=== PATIENT | female | born 1940 | race Caucasian/White ===

== ENCOUNTER → 2022-06-21 | Outpatient (CLI) | payer MEDICARE ==
--- NOTE | 2022-06-21 13:16 | CT ---
EXAMINATION TYPE: CT chest w con DATE OF EXAM: 06/21/2022 COMPARISON: Chest x-ray 1022 HISTORY: SAVAGE for [address] DLP: 279 mGycm Automated exposure control for dose reduction was used. TECHNIQUE: CT scan of the chest is performed with IV Contrast, patient injected with 70 mL of Isovue 300. MIP I mages are created on CT scanner and reviewed. 3D reconstructed images are created on an independent w orkstation and reviewed. FINDINGS: Exam limited by respiratory motion artifact LUNGS: Subpleural 6 mm nodule superior segment right lower lobe image 25 small characterize.. There is no pleural effusion or pneumothorax seen. The tracheobronchial tree is patent. Groundglass subse gmental consolidation without air bronchograms seen in the anterior segment right upper lobe axial im ages 22 through 24. Additional 5 mm subpleural nodule right upper lobe axial image 26 MEDIASTINUM: There are no greater than 1 cm hilar or mediastinal lymph nodes. Trace of pericardial ef fusion is seen. Aorta normal caliber with atherosclerotic changes. OTHER: Large hiatal hernia. Hypertrophic degenerative changes spine. IMPRESSION: 1. Within the anterior segment right upper lobe localized area of groundglass changes. Differential d iagnosis includes a mild pneumonitis. 2. There are subpleural 6 mm left right-sided pulmonary nodule too small to characterize. Recommend s ix-month follow-up to confirm stability. 3. Large hiatal hernia.
== END | disposition home or self-care (01) ==
LOC: RADCTMAIN 11:09
PROVIDERS: ATTEND Internal Medicine
DX: K44.9 Diaphragmatic hernia without obstruction or gangrene (principal); R91.1 Solitary pulmonary nodule
CPT/HCPCS: 82565; 84520; 71260; 36415; Q9967

== ENCOUNTER 2022-07-26 13:06 | Day surgery (SDC) | payer MEDICARE ==
[~2022-07-26 13:06] MED LIST: LACTATED RINGERS 1,000 ML IV SCH; LIDOCAINE 1% (10MG/ML) FOR IV START INTRADERMA PRN
[2022-07-26 13:42] VITALS: TEMP 97.3
[2022-07-26 13:50] LABS: Glucose,Whole Blood 94 mg/dL (70-110)
[2022-07-26] MEDS ORDERED: PROPOFOL 10 MG/ML 20 ML VIAL IV ONE (14:17)
--- NOTE | 2022-07-26 14:24 | P.GSHP ---
History of Present Illness H&P Date: 07/26/22 Chief Complaint: GERD This is a 7-year-old female with a known history of a large hiatal hernia. Patient presents today for EGD. Past Medical History Past Medical History: Diabetes Mellitus, GERD/Reflux, Hyperlipidemia, Hypertension, Osteoarthritis (OA), Sleep Apnea/CPAP/BIPAP Additional Past Medical History / Comment(s): hiatal hernia, "can't breathe"- told breathing issue is due to hiatal hernia, has had testing & everything else ruled out, recent EKG @[place], dysphagia, uses CPAP History of Any Multi-Drug Resistant Organisms: None Reported Past Surgical History: Adenoidectomy, Orthopedic Surgery, Tonsillectomy Additional Past Surgical History / Comment(s): BILAT CATARACTS REMOVED. D & C. BILAT BONE SPURS REMOVED FROM FEET. COLONOSCOPY. EGD Past Anesthesia/Blood Transfusion Reactions: No Reported Reaction Smoking Status: Never smoker - Past Family History Mother Family Medical History: Diabetes Mellitus, Deep Vein Thrombosis (DVT) Father Family Medical History: Congestive Heart Failure (CHF) Brother(s) Family Medical History: Cancer, Coronary Artery Disease (CAD) Son(s) Family Medical History: No Reported History Daughter(s) Family Medical History: No Reported History Medications and Allergies Home Medications Medication Instructions Recorded Confirmed Type Aspirin 81 mg PO DAILY 03/06/15 07/23/22 History Ca/D3/Mag/Zinc/Stephane/Reg/Mgbor 1 tab PO DAILY 03/06/15 07/23/22 History [Caltrate 600+D3+Min Chew Tab] Losartan Potassium [Cozaar] 25 mg PO DAILY 03/06/15 07/26/22 History Multivitamins, Thera [Theragran] 1 tab PO DAILY 03/06/15 07/23/22 History Psyllium Husk (with Sugar) 822 gm PO DAILY 03/06/15 07/26/22 History [Metamucil Powder] Simvastatin [Zocor] 20 mg PO HS 03/06/15 07/23/22 History metFORMIN HCL [Glucophage] 250 mg PO BID 03/06/15 07/23/22 History Albuterol Inhaler [Ventolin Hfa 1 - 2 puff INHALATION Q6H PRN 07/23/22 07/23/22 History Inhaler] Lansoprazole [Prevacid] 30 mg PO DAILY 07/23/22 07/23/22 History Telmisartan [Micardis] 80 mg PO DAILY 07/23/22 07/26/22 History Ubidecarenone [Co Q-10] 100 mg PO DAILY 07/23/22 07/23/22 History Allergies Allergy/AdvReac Type Severity Reaction Status Date / Time lisinopril AdvReac Cough Verified 07/26/22 13:21 Penicillins AdvReac NOT Verified 07/26/22 13:21 EFFECTIVE Surgical - Exam Vital Signs Temp Pulse Resp BP Pulse Ox 97.3 F L 85 16 168/71 97 07/26/22 13:28 07/26/22 13:28 07/26/22 13:28 07/26/22 13:28 07/26/22 13:28 - General well developed, well nourished, no distress - Eyes PERRL - ENT normal pinna - Neck no masses - Respiratory normal expansion - Cardiovascular Rhythm: regular - Abdomen Abdomen: soft, non tender Assessment and Plan Assessment: GERD. We'll perform EGD.
--- NOTE | 2022-07-26 14:31 | P.OP ---
Date of Procedure: 07/26/22 Preoperative Diagnosis: GERD Postoperative Diagnosis: Large hiatal hernia Procedure(s) Performed: EGD Anesthesia: MAC Surgeon: Marco Vickers Pathology: none sent Condition: stable Description of Procedure: The patient's placed on the endoscopy table in the lateral position. She received IV sedation. The gastroscope placed oropharynx passed in the esophagus into the stomach. Scope was then placed through the pylorus. The first and second portion duodenum appeared normal. Scope was then brought back. The patient had a large hiatal hernia. Approximately two thirds the stomach appeared to be within the hiatal hernia. The antrum was biopsied. Scope was then brought back. In the GE junction was at 37 cm. The distal esophagus appeared normal. The proximal esophagus appeared normal. Scope withdrawn for patient.
[2022-07-26 14:41] VITALS: RESP 18
[2022-07-26 15:10] VITALS: BP 149/74; PULSE 72
== END 2022-07-26 15:28 | disposition home or self-care (01) ==
LOC: ORWHC2ENDO 13:06
PROVIDERS: ATTEND Surgery
DX: K29.50 Unspecified chronic gastritis without bleeding (principal); K44.9 Diaphragmatic hernia without obstruction or gangrene; K21.9 Gastro-esophageal reflux disease without esophagitis; E11.9 Type 2 diabetes mellitus without complications; E78.5 Hyperlipidemia, unspecified; I10 Essential (primary) hypertension; M19.90 Unspecified osteoarthritis, unspecified site; G47.33 Obstructive sleep apnea (adult) (pediatric); Z98.890 Other specified postprocedural states; Z90.89 Acquired absence of other organs; Z98.41 Cataract extraction status, right eye; Z98.42 Cataract extraction status, left eye; Z82.49 Family history of ischemic heart disease and other diseases of the circulatory system; Z83.3 Family history of diabetes mellitus; Z80.9 Family history of malignant neoplasm, unspecified; Z83.2 Family history of diseases of the blood and blood-forming organs and certain disorders involving the immune mechanism; Z79.82 Long term (current) use of aspirin; Z79.84 Long term (current) use of oral hypoglycemic drugs; Z79.899 Other long term (current) drug therapy; Z99.89 Dependence on other enabling machines and devices; Z88.8 Allergy status to other drugs, medicaments and biological substances; Z88.0 Allergy status to penicillin
CPT/HCPCS: 43239; 88305; J2704

== ENCOUNTER → 2022-07-29 | Outpatient (CLI) | payer MEDICARE ==
[2022-07-29 17:58] LABS: Basophils # (A) 0.05 X 10*3/uL (0.00-0.10); Basophils % (A) 0.6 %; Eosinophils # (A) 0.28 X 10*3/uL (0.04-0.35); Eosinophils % (A) 3.4 %; HCT 38.1 % (37.2-46.3); HGB 12.2 g/dL (12.0-15.0); Immature Grans, Automated 0.2 %; Lymphocytes # (A) 1.95 X 10*3/uL (0.90-5.00); Lymphocytes % (A) 23.6 %; MCH 30.9 pg (27.0-32.0); MCV 96.5 fL (80.0-97.0); Mean Platelet Volume 11.3 fL (9.5-12.2); Monocytes # (A) 0.77 X 10*3/uL (0.20-1.00); Monocytes % (A) 9.3 %; NRBC Per 100 WBC 0 /100 WBCS (0.0-0.0); Neutrophils # (A) 5.18 X 10*3/uL (1.80-7.70); Neutrophils % (A) 62.9 %; Platelet Count 266 X 10*3/uL (140-440); RBC 3.95 X 10*6/uL (4.10-5.20); RDW 14.1 % (11.5-14.5); WBC 8.25 X 10*3/uL (4.50-10.00)
== END | disposition home or self-care (01) ==
LOC: LABPAT 14:06
PROVIDERS: ATTEND Surgery
DX: Z01.812 Encounter for preprocedural laboratory examination (principal); K44.9 Diaphragmatic hernia without obstruction or gangrene
CPT/HCPCS: 36415; 85025

== ENCOUNTER 2022-07-30 06:33 | Day surgery (SDC) | payer MEDICARE ==
[2022-07-29 13:10] VITALS: BMI 28.9
[~2022-07-30 06:33] MED LIST changes: +ACETAMINOPHEN TAB 500 MG TAB PO PRN; +DEXAMETHASONE SOD PHOSPHATE 4 MG/ML 1 ML VIAL IV ONE; +HEPARIN SODIUM,PORCINE/PF 5,000 UNIT/0.5 ML SYRINGE SQ PRN; -LACTATED RINGERS 1,000 ML IV SCH; +ONDANSETRON 4 MG/2 ML VIAL IVP ONE
[2022-07-30] MEDS: LACTATED RINGERS 1,000 ML IV SCH (07:10)
[2022-07-30 07:33] LABS: Glucose,Whole Blood 102 mg/dL (70-110)
[2022-07-30] MEDS ORDERED: PHENYLEPHRINE-0.9% NACL SYG 1,000 MCG/10 ML SYRINGE ONE (07:33)
[2022-07-30] MEDS ORDERED: PROPOFOL 10 MG/ML 20 ML VIAL IV ONE (07:33)
[2022-07-30] MEDS ORDERED: HYDROmorphone (PF) 1 MG/ML ONE (07:33)
[2022-07-30] MEDS ORDERED: fentaNYL (PF) 50 MCG/ML 2 ML AMP ONE (07:33)
[2022-07-30] MEDS ORDERED: SUCCINYLCHOLINE CHLORIDE 200 MG/10 ML VIAL IV ONE (07:33)
[2022-07-30] MEDS ORDERED: LIDOCAINE 2% INJ 20 MG/ML (2 ML VIAL) ONE (07:33)
[2022-07-30] MEDS ORDERED: SUGAMMADEX SODIUM 200 MG/2 ML SDV IV ONE (07:33)
[2022-07-30] MEDS ORDERED: ROCURONIUM 10 MG/ML (5 ML VIAL) IV ONE (07:33)
[2022-07-30] MEDS ORDERED: NEOSTIGMINE 1 MG/ML 10 ML VIAL ONE (07:33)
[2022-07-30] MEDS ORDERED: GLYCOPYRROLATE 0.2 MG/ML 2 ML VIAL ONE (07:33)
[2022-07-30] MEDS ORDERED: MIDAZOLAM 2 MG/2 ML VIAL ONE (07:33)
[2022-07-30] MEDS ORDERED: BUPIVACAIN-EPI 0.25%-1:200,000 30 ML VIAL SQ ONE (08:10)
[2022-07-30] MEDS ORDERED: LACTATED RINGERS 1,000 ML IV ONE (08:34)
[2022-07-30 08:41] LABS: Potassium 4.2 mmol/L (3.5-5.1)
[2022-07-30] MEDS ORDERED: HYDROmorphone 1 MG/ML 1 ML SYRINGE IVP PRN (09:02)
[2022-07-30] MEDS ORDERED: ONDANSETRON 4 MG/2 ML VIAL IVP PRN (09:02)
[2022-07-30] MEDS: HYDROmorphone 0.5 MG/0.5 ML SYRINGE IVP PRN ×3 (09:02→09:26)
--- NOTE | 2022-07-30 09:02 | P.OP ---
Date of Procedure: 07/30/22 Preoperative Diagnosis: Paraesophageal hernia Postoperative Diagnosis: Paraesophageal hernia with approximately one half stomach and chest Procedure(s) Performed: Laparoscopic repair of paraesophageal hernia with mesh Anesthesia: GAVINO Surgeon: Marco Vickers Estimated Blood Loss (ml): 5 Pathology: none sent Condition: stable Disposition: PACU Operative Findings: Large paraesophageal hernia Description of Procedure: The patient was placed on the operating table in the supine position. She received general anesthesia. She was then placed in dorsal lithotomy position. Her abdomen was prepped and draped in the usual sterile fashion. The skin incision sites were anesthetized with 1% local Xylocaine. The skin was incised in the left periumbilical area with an 11 scalpel. Using a 5 mm blade was trocar under direct visitation the peritoneal cavity was entered. And then insufflated. After adequate insufflation the laparoscope was placed back into the peritoneal cavity. Next a 5 mm trocar was placed in the right epigastric and then the right lateral position. Another 5 mm trochars placed in the left lateral position. Another 5 mm trocar placed in the left epigastric position. And the original left periumbilical trocar was exchanged for a 10 mm trocar. The left lateral lobe liver was retracted. The patient had a large hiatal hernia. Using the Harmonic scissors the crural defect was dissected in the Harmonic scissors were used to dissect the hiatal hernia sac. The fundus of the stomach was completely mobilized by using the Harmonic scissors to divide short gastric vessels. The stomach was reduced into the peritoneal cavity. The crura was dissected with the Harmonic scissors. And then the crural repair was performed using 2-0 Ethibond suture. The Roggen bio A mesh was then placed over top of the repair and secured with 2-0 Ethibond suture. Next. The stomach and esophagus were inspected there is known to any injury to the stomach or esophagus. The abdomen was irrigated there is no bleeding seen. The trochars are withdrawn. Skin was closed interrupted 3-0 Monocryl suture. Dermabond was applied. Patient tolerated procedure well and was sent to recovery in stable condition.
[2022-07-30] MEDS ORDERED: KETOROLAC 15 MG/ML 1 ML VIAL IVP ONE (09:35)
[2022-07-30] MEDS ORDERED: hydrALAZINE HCL 20 MG/ML 1 ML VIAL IVP ONE (10:04)
[2022-07-30 13:37] LABS: Glucose,Whole Blood 158 mg/dL (70-110)
[2022-07-30] MEDS: D5-0.45% NACL WITH KCL 20MEQ/L 1,000 ML IV SCH ×2 (13:45→17:31)
[2022-07-30] MEDS: LOSARTAN 25 MG TAB PO SCH (15:20)
[2022-07-30 17:06] LABS: Glucose,Whole Blood 206 mg/dL (70-110)
[2022-07-30] MEDS: INSULIN ASPART (NovoLOG) 100 UNIT/ML VIAL SQ SCH ×2 (17:46→21:46)
[2022-07-30 19:05] LABS: Glucose,Whole Blood 182 mg/dL (70-110)
[2022-07-30] MEDS ORDERED: ATORVASTATIN 10 MG TAB PO SCH (21:00)
--- NOTE | 2022-07-30 23:43 | P.CONS ---
History of Present Illness - Reason for Consult Consult date: 07/30/22 Medical management - Chief Complaint Repair of paraesophageal hernia. - History of Present Illness Patient is a 82-year-old female with a known history of hypertension, hyperlipidemia, GERD, diabetes type 2 [id number] presented to the hospital for elective repair of paraesophageal hernia. Patient is status post laparoscopic repair of paraesophageal hernia with mesh. Currently patient is sitting in the bed. Awake alert and oriented x3. Pain is controlled. No nausea or vomiting. No cough or production. No chest pain or shortness of breath. No headache or dizziness or lightheadedness. Laboratory showed sodium 152 potassium 4.2 chloride 107 bicarb is 29 anion gap 6 and blood sugar is 158 Patient's blood pressure uncontrolled and increasing to 192/83 mmHg. Review of Systems Constitutional: Patient denies any fever or chills . no Generalized weakness. Abdomen: Patient denied any nausea or vomiting or abd. pain Cardiovascular: Patient denies any chest pain or short of breath no palpitations. Respiratory: patient denied any cough . no sputum production. No shortness of breath Neurologic: Patient denied any numbness or tingling headache. Musculoskeletal: Patient denies any complaints of joint swelling or deformity. Skin: Negative Psychiatric: Negative Endocrine: No heat or cold intolerance. No recent weight gain. Genitourinary: No dysuria or hematuria. All other 14 point ROS negative except the above Past Medical History Past Medical History: Diabetes Mellitus, GERD/Reflux, Hyperlipidemia, Hypertension, Osteoarthritis (OA), Sleep Apnea/CPAP/BIPAP Additional Past Medical History / Comment(s): hiatal hernia, "can't breathe"- told breathing issue is due to hiatal hernia, has had testing & everything else ruled out, recent EKG @[place], dysphagia, uses CPAP History of Any Multi-Drug Resistant Organisms: None Reported Past Surgical History: Adenoidectomy, Orthopedic Surgery, Tonsillectomy Additional Past Surgical History / Comment(s): BILAT CATARACTS REMOVED. D & C. BILAT BONE SPURS REMOVED FROM FEET. COLONOSCOPY. EGD Past Anesthesia/Blood Transfusion Reactions: No Reported Reaction Past Psychological History: No Psychological Hx Reported Smoking Status: Never smoker Past Alcohol Use History: Rare Past Drug Use History: None Reported - Past Family History Mother Family Medical History: Diabetes Mellitus, Deep Vein Thrombosis (DVT) Father Family Medical History: Congestive Heart Failure (CHF) Brother(s) Family Medical History: Cancer, Coronary Artery Disease (CAD) Son(s) Family Medical History: No Reported History Daughter(s) Family Medical History: No Reported History Medications and Allergies Home Medications Medication Instructions Recorded Confirmed Type Aspirin 81 mg PO DAILY 03/06/15 07/30/22 History Ca/D3/Mag/Zinc/Stephane/Reg/Mgbor 1 tab PO DAILY 03/06/15 07/30/22 History [Caltrate 600+D3+Min Chew Tab] Losartan Potassium [Cozaar] 25 mg PO QAM 03/06/15 07/30/22 History Multivitamins, Thera [Theragran] 1 tab PO DAILY 03/06/15 07/30/22 History Psyllium Husk (with Sugar) 822 gm PO DAILY 03/06/15 07/30/22 History [Metamucil Powder] Simvastatin [Zocor] 20 mg PO HS 03/06/15 07/30/22 History metFORMIN HCL [Glucophage] 250 mg PO BID 03/06/15 07/30/22 History Albuterol Inhaler [Ventolin Hfa 1 - 2 puff INHALATION Q6H PRN 07/23/22 07/30/22 History Inhaler] Lansoprazole [Prevacid] 30 mg PO QAM 07/23/22 07/30/22 History Telmisartan [Micardis] 80 mg PO QAM 07/23/22 07/30/22 History Ubidecarenone [Co Q-10] 100 mg PO DAILY 07/23/22 07/30/22 History Allergies Allergy/AdvReac Type Severity Reaction Status Date / Time lisinopril AdvReac Cough Verified 07/30/22 06:54 Penicillins AdvReac NOT Verified 07/30/22 06:54 EFFECTIVE Physical Exam Vitals: Vital Signs Temp Pulse Resp BP Pulse Ox 07/30/22 12:35 92 148/75 98 07/30/22 12:05 93 144/76 95 07/30/22 11:50 95 163/76 97 07/30/22 11:35 96 153/77 96 07/30/22 11:20 86 169/79 96 07/30/22 11:05 97.6 F 87 16 157/80 96 07/30/22 10:31 170/79 07/30/22 10:30 88 16 169/70 100 07/30/22 10:15 83 16 169/70 99 07/30/22 09:55 96 16 183/72 99 07/30/22 09:40 99 16 192/83 99 07/30/22 09:25 80 16 184/81 100 07/30/22 09:10 79 16 184/81 97 07/30/22 08:55 106 H 16 154/72 94 L 07/30/22 06:52 97.2 F L 81 16 192/81 97 Intake and Output 07/30/22 07/30/22 07/30/22 06:59 14:59 22:59 Intake Total 2125 Output Total 5 Balance 2120 Intake: IV 1450 Intake, IV Titration 675 Amount D5-0.45% NaCl with KCl 625 20Meq/l 1,000 ml @ 125 mls/hr IV .Q8H SERGO Rx#: [id number] ceFAZolin 1,000 mg In 50 Sodium Chloride 0.9% 50 ml @ 100 mls/hr IVPB Q8H SERGO Rx#:[id number] Output: Estimated Blood Loss 5 Other: # Voids 1 Weight 67.6 kg 67.6 kg PHYSICAL EXAMINATION: Patient is lying in the bed comfortably, no acute distress, awake alert and oriented.. HEENT: Normocephalic. Neck is supple. Pupils reactive. Nostrils clear. Oral cavity is moist. Neck reveals no JVD, carotid bruits, or thyromegaly. CHEST EXAMINATION: Trachea is central. Symmetrical expansion. Lung fung clear to auscultation and percussion. CARDIAC: Normal S1, S2 with no gallops. No murmurs ABDOMEN: Soft. Bowel sounds present. Nontender. No organomegaly. No abdominal bruits. Extremities: reveal no edema. No clubbing or cyanosis Neurologically awake, alert, oriented x3 with well-coordinated movements. No focal deficits noted Skin: No rash or skin lesions. Psychiatric: Coperative. Nonsuicidal, Musculoskeletal: No joint swelling or deformity. Normal range of motion. Results CBC & Chem 7: 07/30/22 07:17 Labs: Abnormal Lab Results - Last 24 Hours (Table) 07/30/22 Range/Units 13:32 POC Glucose (mg/dL) 158 H (70-110) mg/dL Assessment and Plan Assessment: S/p paraesophageal hernia repair laparoscopic. Postoperative day 0 Diabetes type 2 [id number] Hypertension uncontrolled Hyperlipidemia GERD Osteoarthritis Obstructive sleep apnea on CPAP at home Hiatal hernia No prior history of smoking Plan: Patient will be started back on losartan 25 mg daily and continue to titrate blood pressure medications. Metformin is on hold and continue with insulin sliding scale and follow blood sugars and blood pressure closely. Encourage incentive spirometry. Pain management and DVT prophylaxis as per primary team. We will continue to follow closely and further recommendations based on the clinical course. Follow-up CBC and BMP tomorrow. Time with Patient: Greater than 30
[2022-07-31 04:20] VITALS: RESP 18
[2022-07-31] MEDS: LACTATED RINGERS 1,000 ML IV SCH (05:02)
[2022-07-31] MEDS: D5-0.45% NACL WITH KCL 20MEQ/L 1,000 ML IV SCH ×2 (05:35→08:05)
[2022-07-31 06:20] LABS: Glucose,Whole Blood 154 mg/dL (70-110)
[2022-07-31] MEDS: INSULIN ASPART (NovoLOG) 100 UNIT/ML VIAL SQ SCH (06:28)
[2022-07-31 07:46] VITALS: BP 147/77; PULSE 93; TEMP 98.5
[2022-07-31] MEDS: LOSARTAN 25 MG TAB PO SCH (08:04)
[2022-07-31] MEDS ORDERED: PANTOPRAZOLE 40 MG TABLET PO SCH (09:00)
[2022-07-31] MEDS ORDERED: ENOXAPARIN 40 MG/0.4 ML SYRINGE SQ SCH (09:00)
--- NOTE | 2022-07-31 11:24 | P.DS ---
Providers Date of admission: 07/30/2022 Expected date of discharge: 07/31/22 Attending physician: Marco Vickers Consults: 07/30/22 09:02 Consult Physician Routine Consulting Provider: Radha Barajas Consult Reason/Comments: med manag Do you want consulting provider notified?: Yes Primary care physician: Leonel Blount [facility] Course: This is a 1-year-old female underwent laparoscopic repair of paraesophageal hernia. Patient did well postoperatively. Please see hospital chart for details. Procedures: Laparoscopic repair of paraesophageal hernia Patient Condition at Discharge: Good Plan - Discharge Summary Discharge Rx Participant: No New Discharge Prescriptions: New Docusate [Colace] 100 mg PO BID #20 capsule oxyCODONE HCL [OxyIR] 5 mg PO Q6H PRN 3 Days #10 tab PRN Reason: Pain Acetaminophen Tab [Tylenol] 650 mg PO Q6H #30 tab No Action Multivitamins, Thera [Theragran] 1 tab PO DAILY Aspirin 81 mg PO DAILY metFORMIN HCL [Glucophage] 250 mg PO BID Simvastatin [Zocor] 20 mg PO HS Psyllium Husk (with Sugar) [Metamucil Powder] 822 gm PO DAILY Losartan Potassium [Cozaar] 25 mg PO QAM Ca/D3/Mag/Zinc/Stephane/Reg/Mgbor [Caltrate 600+D3+Min Chew Tab] 1 tab PO DAILY Telmisartan [Micardis] 80 mg PO QAM Lansoprazole [Prevacid] 30 mg PO QAM Albuterol Inhaler [Ventolin Hfa Inhaler] 1 - 2 puff INHALATION Q6H PRN PRN Reason: Shortness Of Breath Ubidecarenone [Co Q-10] 100 mg PO DAILY Discharge Medication List Aspirin 81 mg PO DAILY 03/06/15 [History] Ca/D3/Mag/Zinc/Stephane/Reg/Mgbor [Caltrate 600+D3+Min Chew Tab] 1 tab PO DAILY 03/06/15 [History] Losartan Potassium [Cozaar] 25 mg PO QAM 03/06/15 [History] Multivitamins, Thera [Theragran] 1 tab PO DAILY 03/06/15 [History] Psyllium Husk (with Sugar) [Metamucil Powder] 822 gm PO DAILY 03/06/15 [History] Simvastatin [Zocor] 20 mg PO HS 03/06/15 [History] metFORMIN HCL [Glucophage] 250 mg PO BID 03/06/15 [History] Albuterol Inhaler [Ventolin Hfa Inhaler] 1 - 2 puff INHALATION Q6H PRN 07/23/22 [History] Lansoprazole [Prevacid] 30 mg PO QAM 07/23/22 [History] Telmisartan [Micardis] 80 mg PO QAM 07/23/22 [History] Ubidecarenone [Co Q-10] 100 mg PO DAILY 07/23/22 [History] Acetaminophen Tab [Tylenol] 650 mg PO Q6H #30 tab 07/31/22 [Rx] Docusate [Colace] 100 mg PO BID #20 capsule 07/31/22 [Rx] oxyCODONE HCL [OxyIR] 5 mg PO Q6H PRN 3 Days #10 tab 07/31/22 [Rx] Follow up Appointment(s)/Referral(s): Marco Vickers MD [STAFF PHYSICIAN] - 1 Week Activity/Diet/Wound Care/Special Instructions: Full liquid diet for 2 weeks Discharge Disposition: HOME SELF-CARE
[2022-07-31 11:29] LABS: Glucose,Whole Blood 158 mg/dL (70-110)
[2022-07-31 11:37] LABS: Basophils # (A) 0.01 X 10*3/uL (0.00-0.10); Basophils % (A) 0.1 %; Eosinophils # (A) 0.01 X 10*3/uL (0.04-0.35); Eosinophils % (A) 0.1 %; HCT 36.4 % (37.2-46.3); HGB 11.4 g/dL (12.0-15.0); Immature Grans, Automated 0.4 %; Lymphocytes # (A) 1.28 X 10*3/uL (0.90-5.00); Lymphocytes % (A) 9.2 %; MCH 30.2 pg (27.0-32.0); MCHC 31.3 g/dL (32.0-37.0); MCV 96.6 fL (80.0-97.0); Mean Platelet Volume 11.3 fL (9.5-12.2); Monocytes # (A) 1.11 X 10*3/uL (0.20-1.00); NRBC Per 100 WBC 0 /100 WBCS (0.0-0.0); Neutrophils # (A) 11.48 X 10*3/uL (1.80-7.70); Neutrophils % (A) 82.2 %; Platelet Count 262 X 10*3/uL (140-440); RBC 3.77 X 10*6/uL (4.10-5.20); RDW 13.9 % (11.5-14.5); WBC 13.94 X 10*3/uL (4.50-10.00)
[2022-07-31 11:52] LABS: African American GFR (CKD) 94.5 (60.0-200.0); Anion Gap 10.5 mmol/L (10.00-18.00); BUN/Creat Ratio 14.51 Ratio (12.00-20.00); Blood Urea Nitrogen 9.9 mg/dL (9.0-27.0); Calcium 8.8 mg/dL (8.7-10.3); Carbon Dioxide 23.3 mmol/L (20.0-27.5); Non-African American GFR(CKD) 81.5 (60.0-200.0); Potassium 4.1 mmol/L (3.5-5.5)
== END 2022-07-31 12:21 | disposition home or self-care (01) ==
LOC: OR 06:33 → 6NMEDSUR 08:36 → OR 07-31 12:21
PROVIDERS: ATTEND Surgery
DX: K44.9 Diaphragmatic hernia without obstruction or gangrene (principal); K21.9 Gastro-esophageal reflux disease without esophagitis; E11.9 Type 2 diabetes mellitus without complications; I10 Essential (primary) hypertension; E78.5 Hyperlipidemia, unspecified; Z90.89 Acquired absence of other organs; Z90.49 Acquired absence of other specified parts of digestive tract; Z83.3 Family history of diabetes mellitus; Z82.49 Family history of ischemic heart disease and other diseases of the circulatory system; Z79.82 Long term (current) use of aspirin; Z79.899 Other long term (current) drug therapy
CPT/HCPCS: 94760; 80051; 80048; 85025; 83036; 43282; C1781; J0360; J1100; J0690 ×2; J2405; J1650; J1885; J1170; J1644

== ENCOUNTER → 2022-11-25 | Outpatient (CLI) | payer MEDICARE ==
--- NOTE | 2022-11-25 12:43 | FL ---
EXAMINATION TYPE: FL barium swallow DATE OF EXAM: 11/25/2022 CLINICAL INDICATION: 81-year-old female R1 3.10, dysphagia. Trouble swallowing and shortness of breat h. Patient with hiatal hernia repair July 2022. COMPARISON: Correlation CT chest 06/21/2022 Total Fluoroscopy Time: 1 minute 36 seconds Total images: 47. Total DAP: 153.16 FINDINGS: Silent aspiration was demonstrated on the patient swallows. The degree of aspiration become significa nt as the exam progresses outlining the trachea and extending into the right mainstem bronchus. The hypopharyngeal anatomy is preserved. The exam was stopped after a quick single contrast assessment of the thoracic esophagus. There is nor mal course and caliber. No suspicious filling defect or fixed narrowing is seen. No recurrent hiatal hernia. IMPRESSION: 1. Exam shortened due to significant silent aspiration extending into the right mainstem bronchus. Re commend speech pathology evaluation. 2. No Zenker's diverticulum, CP muscle hypertrophy, stricture, or recurrent hiatal hernia. 3. Given the pulmonary groundglass change seen on the patient's CT chest of 06/21/2022, consider furt her pulmonary medicine evaluation.
== END | disposition home or self-care (01) ==
LOC: RADUSWWP 08:59
PROVIDERS: ATTEND Surgery
DX: R13.10 Dysphagia, unspecified (principal)
CPT/HCPCS: 74220

== ENCOUNTER 2023-08-25 07:14 | Day surgery (SDC) | payer MEDICARE ==
[2023-08-25] MEDS ORDERED: LACTATED RINGERS 1,000 ML IV SCH (07:25)
[2023-08-25] MEDS ORDERED: LACTATED RINGERS 1,000 ML IV ONE (07:33)
[2023-08-25 07:49] VITALS: RESP 16; TEMP 98
[2023-08-25 07:55] LABS: Glucose,Whole Blood 110 mg/dL (70-110)
[2023-08-25] MEDS ORDERED: LIDOCAINE 1% INJ 10MG/ML (20 ML MDV) ONE (08:08)
[2023-08-25] MEDS ORDERED: PROPOFOL 10 MG/ML 20 ML VIAL IV ONE (08:08)
--- NOTE | 2023-08-25 08:24 | P.OP ---
Date of Procedure: 08/25/23 Preoperative Diagnosis: Protein and calorie malnutrition Postoperative Diagnosis: protein -calorie malnutrition Procedure(s) Performed: EGD with PEG tube placement Anesthesia: MAC Surgeon: Marco Vickers Pathology: none sent Condition: stable Disposition: PACU Description of Procedure: The patient received IV sedation. Next the gastroscope placed oropharynx passed in the esophagus and stomach. There is no evidence of any outlet obstruction. Stomach was insufflated with air. The light reflux seen the anterior abdominal wall. The abdomen was prepped and draped usual fashion. The skin was incised. And the needles placed and stomach under direct visualization. The needle was snared. And the wires placed through the needle and the wire was snared and brought the oropharynx. The PEG tube was placed over top the wire brought down to the stomach. The PEG tube was secured. At the 3 cm cassie. The one-piece bolster was used. Patient tolerated procedure well.
[2023-08-25 09:28] VITALS: BP 115/60; PULSE 78
== END 2023-08-25 09:20 | disposition home or self-care (01) ==
LOC: ORWHC2ENDO 07:14
PROVIDERS: ATTEND Surgery
DX: E46 Unspecified protein-calorie malnutrition (principal); I10 Essential (primary) hypertension; E78.5 Hyperlipidemia, unspecified; E11.9 Type 2 diabetes mellitus without complications; F32.A Depression, unspecified; K21.9 Gastro-esophageal reflux disease without esophagitis; K57.92 Diverticulitis of intestine, part unspecified, without perforation or abscess without bleeding; G47.33 Obstructive sleep apnea (adult) (pediatric); K44.9 Diaphragmatic hernia without obstruction or gangrene; Z79.84 Long term (current) use of oral hypoglycemic drugs; Z79.82 Long term (current) use of aspirin; Z79.899 Other long term (current) drug therapy; Z90.710 Acquired absence of both cervix and uterus; Z98.890 Other specified postprocedural states
CPT/HCPCS: 43246; J2001; J2704; B4087